=== PATIENT | female | born 1965 | race Two or more races ===

== ENCOUNTER 2022-01-31 11:56 | Outpatient (REF) | payer OTHER, SELFPAY ==
[2022-01-31 14:15] LABS: C Reactive Protein 0.05 mg/dL (< or = 0.50)
[2022-01-31 14:17] LABS: Creatinine Urine 34.88 mg/dL; Total Protein Urine Random < 7 mg/dL (<12)
[2022-01-31 14:44] LABS: Erythrocyte Sedimentation Rate 5 MM/HR (0-20)
[2022-02-03 14:25] LABS: Anti DNA DS Antibody <1 IU/mL; SM/Ribonucleoprotein Ab <1.0 NEG AI (<1.0 NEG); Scleroderma 70 Antibody <1.0 NEG AI (<1.0 NEG); Smith Protein <1.0 NEG AI (<1.0 NEG)
== END 2022-01-31 11:57 | disposition home or self-care (01) ==
LOC: HO.10HDL 11:56
PROVIDERS: Visit Provider Internal Medicine Rheumatology
DX: R76.8 Other specified abnormal immunological findings in serum (principal); I73.00 Raynaud's syndrome without gangrene
CPT/HCPCS: 36415; 84156; 85652; 86140; 86225; 86235